=== PATIENT | male | born 1975 ===

== ENCOUNTER 2020-04-22 00:38 | Emergency (ER) | payer MEDICAID ==
[~2020-04-22] VITALS: Ht 185.4 cm; Wt 126.4 kg
--- NOTE | 2020-04-22 01:09 | NUR ---
ERP TO BEDSIDE.
[2020-04-22 01:58] LABS: BASOPHILS # (AUTO) 0.02 x10^3/uL (0-0.1); BASOPHILS % (AUTO) 0 % (0-1); EOSINOPHILS # (AUTO) 0.04 x10^3/uL (0-0.4); EOSINOPHILS % (AUTO) 1 % (1-7); LYMPHOCYTES # (AUTO) 1.27 x10^3/uL (1-3.4); LYMPHOCYTES % (AUTO) 17 % (22-44); MD NO; MEAN CORPUSCULAR HEMOGLOBIN 29.9 pg (27.5-34.5); MEAN CORPUSCULAR HGB CONC 32.5 g/dL (33.2-36.2); MEAN CORPUSCULAR VOLUME 92.2 fL (81-97); MEAN PLATELET VOLUME 7.6 fL (7.4-10.4); MONOCYTES # (AUTO) 0.79 x10^3/uL (0.2-0.8); MONOCYTES % (AUTO) 11 % (2-9); NEUTROPHILS # (AUTO) 5.22 x10^3/uL (1.8-6.8); NEUTROPHILS % (AUTO) 71 % (42-75); PLATELET COUNT 153 x10^3/uL (130-400); RED BLOOD COUNT 3.65 x10^6/uL (4.38-5.82); RED CELL DISTRIBUTION WIDTH 17.7 % (9.4-14.8)
--- NOTE | 2020-04-22 02:07 | NUR ---
US AT BS AT THIS TIME.
[2020-04-22 02:09] LABS: ALBUMIN 3.9 g/dL (3.4-5.0); ANION GAP 4 mmol/L (5-15); CALCIUM 8.6 mg/dL (8.5-10.1); CHLORIDE 112 mmol/L (98-107)
[2020-04-22 02:13] LABS: ALANINE AMINOTRANSFERASE 26 U/L (12-78); ALKALINE PHOSPHATASE 235 U/L (45-117); BILIRUBIN,TOTAL 3.2 mg/dL (0.2-1.0); CREATININE 1.07 mg/dL (0.7-1.3); TOTAL PROTEIN 6.9 g/dL (6.4-8.2)
[2020-04-22] MEDS ORDERED: HYDROcodone/APAP 5/325 TABLET PO ONE (02:30)
[2020-04-22] MEDS ORDERED: LIDOCAINE 1%, 10ML INFIL ONE (02:30)
[2020-04-22] MEDS ORDERED: HYDROcodone/APAP 5/325 TABLET ONE ×2 (02:32→02:40)
--- NOTE | 2020-04-22 02:35 | NUR ---
PT SITTING IN BED, WATCHING TV, NO SIGNS OF DISTRESS. WILL CONTINUE TO MONITOR.
--- NOTE | 2020-04-22 02:52 | NUR ---
PT AMBULATORY TO BATHROOM, STEADY GAIT.
[2020-04-22] MEDS ORDERED: LIDOCAINE-MPF 1%, 5ML ONE (03:00)
--- NOTE | 2020-04-22 03:45 | NUR ---
ERP TO BEDSIDE TO DO PARACENTISIS.
[2020-04-22] MEDS ORDERED: MORPHINE SULFATE 4 MG/ML, 1ML ONE (04:12)
[2020-04-22] MEDS ORDERED: ONDANSETRON 2MG/ML, 2ML ONE (04:12)
[2020-04-22] MEDS ORDERED: ONDANSETRON 2MG/ML, 2ML IVPush ONE (04:30)
[2020-04-22] MEDS ORDERED: MORPHINE SULFATE 4 MG/ML, 1ML IVPush PRN (04:30)
--- NOTE | 2020-04-22 04:50 | NUR ---
ERP TO BEDSIDE, UPDATED PT ON POC. ALL NEEDS MET AT THIS TIME.
--- NOTE | 2020-04-22 04:57 | NUR ---
PARACENTISIS UNSUCCESSFUL DUE TO CATHETER NOT STAYING IN PLACE. ERP UPDATED PT ON POC, DISCUSSED FLUID NEEDING TO BE SENT TO LAB, FLUID SENT. PLAN FOR PARACENTISIS IN IR LATER THIS AM. PT CURRENTLY LAYING IN BED, EYES CLOSED, RESPIRATIONS EVEN AND UNLABORED. WILL CONTINUE TO MONITOR.
--- NOTE | 2020-04-22 05:50 | NUR ---
PT REMAINS ON MONITORS, LAYING IN BED, NO SIGNS OF DISTRESS, RESPIRATIONS EVEN AND UNLABORED, WATCHING TV, CALL LIGHT WITHIN REACH, CELL PHONE IN HAND. PT STATES "I'M NOT IN PAIN, I'M DOING ALL RIGHT."
--- NOTE | 2020-04-22 05:51 | NUR ---
CONSENT OBTAINED BEFORE PARACENTISIS PERFORMED.
--- NOTE | 2020-04-22 06:46 | NUR ---
PT CONVERSING WITH THIS RN, NO SIGNS OF DISTRESS, NO COMPLAINTS. PT AMBULATORY TO BATHROOM, STEADY GAIT.
[2020-04-22] MEDS ORDERED: FURO20TA3 PO (06:51)
[2020-04-22] MEDS ORDERED: HYDR25CA94 PO (06:51)
[2020-04-22] MEDS ORDERED: PROP10TA16 PO (06:51)
[2020-04-22] MEDS ORDERED: OLAN10TA9 PO (06:51)
[2020-04-22] MEDS ORDERED: MIRT15TA94 PO (06:51)
[2020-04-22] MEDS ORDERED: SPIR25TA5 PO (06:51)
[2020-04-22] MEDS ORDERED: RIFA550T4 PO (06:51)
--- NOTE | 2020-04-22 07:00 | NUR ---
RECEIVED REPORT FROM GENIA MANZO RN. [facility]. VSS. MOUTH SWABS PROVIDED.
--- NOTE | 2020-04-22 07:01 | NUR ---
Report given to ELIZABETH Gallardo.
--- NOTE | 2020-04-22 07:47 | NUR ---
NATALIE W/ EBONY IN IR WHO STATES PT WILL BE TAKEN BEFORE 0800 TODAY.
[2020-04-22] MEDS ORDERED: LIDOCAINE 1%, 10ML ONE (07:50)
--- NOTE | 2020-04-22 08:10 | NUR ---
PATIENT TAKEN TO IR IN STABLE CONDITION.
--- NOTE | 2020-04-22 08:40 | NUR ---
PT BACK FROM IR. RESTING ON [employer]. NADN. [place]IST[facility].
--- NOTE | 2020-04-22 09:46 | NUR ---
PT RESTING ON GURNEY. NADN. [place]. PT CHART REVIEWED AND PLACED FOR RECHECK.
[2020-04-22 10:41] VITALS: BP 117/68
--- NOTE | 2020-04-22 10:42 | NUR ---
PT RESTING ON GURNEY. TAVAREZ. VSS. DIET TRAY ORDERED.
--- NOTE | 2020-04-22 11:07 | NUR ---
PT RESTING ON GURNEY. TAVAREZ. PT PROVIDED W/ MEAL TRAY.
== END 2020-04-22 11:35 | disposition home or self-care (01) ==
LOC: ED 03:18
DX: K70.31 Alcoholic cirrhosis of liver with ascites (principal); R06.00 Dyspnea, unspecified; R10.9 Unspecified abdominal pain
CPT/HCPCS: 36415; 49083; 71045; 80053; 82042; 83615; 85025; 87070; 87205; 89051; 96374; 96375; 99285; J2270; J2405; J3490

== ENCOUNTER 2020-05-01 09:37 | Inpatient (IN) | payer MEDICAID ==
[~2020-05-01] VITALS: Ht 185.4 cm; Wt 126.4 kg
[~2020-05-01 09:37] MED LIST: FURO20TA3 PO; HYDR25CA94 PO; MIRT15TA94 PO; OLAN10TA9 PO; PROP10TA16 PO; RIFA550T4 PO; SPIR25TA5 PO
[2020-05-01] MEDS ORDERED: ACETAMINOPHEN 500 MG TABLET PO ONE (10:00)
[2020-05-01] MEDS ORDERED: SODIUM CHLORIDE FLUSH 10ML SYR IVF ONE (10:00)
[2020-05-01] MEDS ORDERED: ONDANSETRON 2MG/ML, 2ML ONE (10:16)
[2020-05-01] MEDS ORDERED: IBUPROFEN 800 MG TABLET ONE (10:16)
[2020-05-01] MEDS ORDERED: MORPHINE SULFATE 4 MG/ML, 1ML ONE (10:17)
[2020-05-01] MEDS ORDERED: LIDOCAINE 1%, 10ML ONE ×2 (10:19→12:35)
--- NOTE | 2020-05-01 10:28 | NUR ---
MAKENNA LEWIS AT FOR PARACENTESIS. Addendum: 05/01/20 at 1044 by JAMEE PARACENTESIS SIGNED BY WILLIAM.
[2020-05-01] MEDS ORDERED: ONDANSETRON 2MG/ML, 2ML IVPush ONE (10:30)
[2020-05-01] MEDS ORDERED: IBUPROFEN 800 MG TABLET PO ONE (10:30)
--- NOTE | 2020-05-01 10:40 | NUR ---
PARACENTESIS PROCEDURE HELD, FOR NOW.
[2020-05-01] MEDS ORDERED: PROP10TA51 PO (10:43)
[2020-05-01] MEDS ORDERED: GABAPENTIN (10:52)
--- NOTE | 2020-05-01 10:53 | NUR ---
PT POOR HISTORIAN RE: HIS PRESCRIPTIONS; UNABLE TO RECALL NAMES, DOSES, WHEN HE LAST TOOK MED.
[2020-05-01] MEDS: MORPHINE SULFATE 4 MG/ML, 1ML IVPush PRN (10:57)
--- NOTE | 2020-05-01 11:01 | NUR ---
ZOFRAN AND MORPHINE GIVEN PER EMAR. IBUPROFEN HELD DUE TO PT'S SUPINE POSITION FOR U/S PROCEDURE. PT VERY TALKATIVE.
[2020-05-01 11:17] LABS: BASOPHILS # (AUTO) 0.03 x10^3/uL (0-0.1); BASOPHILS % (AUTO) 0 % (0-1); EOSINOPHILS # (AUTO) 0.03 x10^3/uL (0-0.4); EOSINOPHILS % (AUTO) 0 % (1-7); LYMPHOCYTES # (AUTO) 1.06 x10^3/uL (1-3.4); LYMPHOCYTES % (AUTO) 10 % (22-44); MD NO; MEAN CORPUSCULAR HEMOGLOBIN 30.3 pg (27.5-34.5); MEAN CORPUSCULAR HGB CONC 32.9 g/dL (33.2-36.2); MEAN CORPUSCULAR VOLUME 92.3 fL (81-97); MEAN PLATELET VOLUME 7.5 fL (7.4-10.4); MONOCYTES # (AUTO) 1.13 x10^3/uL (0.2-0.8); MONOCYTES % (AUTO) 11 % (2-9); NEUTROPHILS # (AUTO) 8.48 x10^3/uL (1.8-6.8); NEUTROPHILS % (AUTO) 79 % (42-75); PLATELET COUNT 161 x10^3/uL (130-400)
[2020-05-01 11:21] LABS: ALANINE AMINOTRANSFERASE 30 U/L (12-78); ALBUMIN 3.4 g/dL (3.4-5.0); ANION GAP 8 mmol/L (5-15); CALCIUM 8.6 mg/dL (8.5-10.1); CHLORIDE 110 mmol/L (98-107); CREATININE 1.09 mg/dL (0.7-1.3)
[2020-05-01 11:25] LABS: ALKALINE PHOSPHATASE 182 U/L (45-117); BILIRUBIN,TOTAL 3.1 mg/dL (0.2-1.0); INTERNATIONAL NORMALIZED RATIO 1.2 (0.93-1.1); PROTHROMBIN TIME 12.7 Seconds (9.6-11.5); TOTAL PROTEIN 6.4 g/dL (6.4-8.2)
--- NOTE | 2020-05-01 11:25 | NUR ---
OFFERED IBUPROFEN TO PT; PT REFUSED, AT THIS TIME.
--- NOTE | 2020-05-01 11:30 | NUR ---
STANDING IN ROOM, EATING A BANANA.
[2020-05-01 11:53] LABS: MICROSCOPIC NOT IND
--- NOTE | 2020-05-01 12:48 | NUR ---
PARACENTESIS STAFF AT BS
[2020-05-01] MEDS ORDERED: CEFTRIAXONE PMX 1GM/50ML 50 ML IV ONE (13:00)
--- NOTE | 2020-05-01 13:10 | NUR ---
PARACENTESIS PROCEDURE COMPLETED: 1L FLUID REMOVED.
[2020-05-01] MEDS ORDERED: CEFTRIAXONE PMX 1GM/50ML 50 ML ONE (13:12)
--- NOTE | 2020-05-01 13:20 | NUR ---
BS FOR EXAM
--- NOTE | 2020-05-01 13:33 | NUR ---
ALLYSSA BROWN, INFUSING VIA PUMP. IV SITE PATENT.
[2020-05-01] MEDS ORDERED: LIDO700A42 TP (13:38)
[2020-05-01] MEDS ORDERED: ALBU8.5H8 INH (13:38)
[2020-05-01] MEDS ORDERED: MAGN400T50 PO (13:38)
[2020-05-01] MEDS ORDERED: MULT1TAB77 PO (13:38)
[2020-05-01] MEDS ORDERED: ONDANSETRON 2MG/ML, 2ML IVPush PRN (14:00)
[2020-05-01] MEDS ORDERED: POLYETHYLENE GLYCOL 17 GM PACKET PO PRN (14:00)
[2020-05-01] MEDS ORDERED: ACETAMINOPHEN 325 MG TABLET PO PRN (14:00)
[2020-05-01] MEDS ORDERED: PROPRANOLOL 10 MG TABLET PO PRN (14:00)
[2020-05-01] MEDS ORDERED: ONDANSETRON ODT 4 MG PO PRN (14:00)
[2020-05-01] MEDS ORDERED: DOCUSATE 100 MG CAPSULE PO PRN (14:00)
--- NOTE | 2020-05-01 14:19 | NUR ---
REPORT TO ELIZABETH FREDERICK FOR ROOM 342
[2020-05-01] MEDS ORDERED: ALBUTEROL SULFATE 2.5 MG/3 ML NPPB PRN (14:30)
[2020-05-01 14:33] VITALS: BP 129/68
[2020-05-01 14:57] LABS: AMPHETAMINE SCREEN, URINE Negative (Negative); BARBITURATE SCREEN, URINE Negative (Negative); BENZODIAZEPINE SCREEN, URINE Negative (Negative); CANNABINOID SCREEN, URINE Positive (Negative); COCAINE SCREEN, URINE Negative (Negative); METHADONE SCREEN, URINE Negative (Negative); OPIATE SCREEN, URINE Positive (Negative)
[2020-05-01 20:00] VITALS: BP 99/53
[2020-05-01] MEDS: LACTULOSE 20 GM/30 ML UDC PO SCH (21:34)
[2020-05-01] MEDS: OLANZAPINE 10 MG TABLET PO SCH ×2 (21:34→23:27)
[2020-05-01] MEDS: OXYcodone IR 5MG TABLET PO PRN (22:11)
[2020-05-01 23:20] VITALS: BP 113/65
[2020-05-02 01:30] VITALS: BP 112/65
[2020-05-02 05:00] LABS: ALBUMIN 3.3 g/dL (3.4-5.0); ANION GAP 3 mmol/L (5-15); CALCIUM 8.1 mg/dL (8.5-10.1); CHLORIDE 109 mmol/L (98-107)
[2020-05-02 05:01] LABS: MEAN CORPUSCULAR HEMOGLOBIN 30.3 pg (27.5-34.5); MEAN CORPUSCULAR VOLUME 91.8 fL (81-97); MEAN PLATELET VOLUME 7.6 fL (7.4-10.4); PLATELET COUNT 123 x10^3/uL (130-400); RED BLOOD COUNT 3.36 x10^6/uL (4.38-5.82)
[2020-05-02 05:03] LABS: ALANINE AMINOTRANSFERASE 30 U/L (12-78); ALKALINE PHOSPHATASE 172 U/L (45-117); BILIRUBIN,TOTAL 2.4 mg/dL (0.2-1.0); CREATININE 1.21 mg/dL (0.7-1.3); TOTAL PROTEIN 6.3 g/dL (6.4-8.2)
[2020-05-02 05:04] LABS: RED CELL DISTRIBUTION WIDTH 17.9 % (9.4-14.8)
[2020-05-02 05:54] LABS: BASOPHILS # (AUTO) 0.02 x10^3/uL (0-0.1); BASOPHILS % (AUTO) 0 % (0-1); EOSINOPHILS # (AUTO) 0.05 x10^3/uL (0-0.4); EOSINOPHILS % (AUTO) 1 % (1-7); LYMPHOCYTES # (AUTO) 1.49 x10^3/uL (1-3.4); LYMPHOCYTES % (AUTO) 19 % (22-44); MD MORPH REVIEW ONLY; MONOCYTES # (AUTO) 0.92 x10^3/uL (0.2-0.8); MONOCYTES % (AUTO) 12 % (2-9); NEUTROPHILS % (AUTO) 68 % (42-75)
[2020-05-02 05:55] LABS: ANISOCYTOSIS 1+; OVALOCYTES 1+
[2020-05-02 05:57] LABS: <PLATELET ESTIMATE> ADEQUATE; <PLT MORPHOLOGY> NORMAL PLT MORPH; ECHINOCYTES 1+; SCHISTOCYTES 1+
[2020-05-02] MEDS: OXYcodone IR 5MG TABLET PO PRN ×2 (06:19→15:22)
[2020-05-02 07:13] VITALS: BP 116/68
[2020-05-02] MEDS: MIRTAZAPINE 15 MG TAB.RAPDIS PO SCH (08:41)
[2020-05-02] MEDS: FUROSEMIDE 40 MG TABLET PO SCH (08:42)
[2020-05-02] MEDS: MULTIVITAMIN 1 TABLET PO SCH (08:42)
[2020-05-02] MEDS: LACTULOSE 20 GM/30 ML UDC PO SCH ×2 (08:42→21:33)
[2020-05-02] MEDS ORDERED: SPIRONOLACTONE 25 MG TABLET PO SCH (09:00)
[2020-05-02 14:00] VITALS: BP 105/66
[2020-05-02] MEDS: CEFTRIAXONE PMX 1GM/50ML 50 ML IV SCH (15:00)
[2020-05-02 19:52] VITALS: BP 127/72
[2020-05-02] MEDS: OLANZAPINE 10 MG TABLET PO SCH (21:33)
[2020-05-03 01:11] VITALS: BP 127/71
[2020-05-03] MEDS: OXYcodone IR 5MG TABLET PO PRN ×3 (01:16→21:34)
[2020-05-03 05:21] LABS: MEAN CORPUSCULAR HEMOGLOBIN 30.7 pg (27.5-34.5); MEAN CORPUSCULAR HGB CONC 33.6 g/dL (33.2-36.2); MEAN CORPUSCULAR VOLUME 91.4 fL (81-97); MEAN PLATELET VOLUME 7.3 fL (7.4-10.4); PLATELET COUNT 99 x10^3/uL (130-400); RED BLOOD COUNT 3.06 x10^6/uL (4.38-5.82); RED CELL DISTRIBUTION WIDTH 17.7 % (9.4-14.8)
[2020-05-03 05:28] LABS: ALANINE AMINOTRANSFERASE 26 U/L (12-78); ALBUMIN 2.9 g/dL (3.4-5.0); ANION GAP 5 mmol/L (5-15); CALCIUM 7.9 mg/dL (8.5-10.1); CHLORIDE 110 mmol/L (98-107)
[2020-05-03 05:31] LABS: ALKALINE PHOSPHATASE 153 U/L (45-117); BILIRUBIN,TOTAL 1.9 mg/dL (0.2-1.0); CREATININE 0.99 mg/dL (0.7-1.3); TOTAL PROTEIN 5.5 g/dL (6.4-8.2)
[2020-05-03 07:05] LABS: MD SCAN
[2020-05-03 07:06] LABS: BASOPHILS # (AUTO) 0.03 x10^3/uL (0-0.1); BASOPHILS % (AUTO) 1 % (0-1); EOSINOPHILS # (AUTO) 0.04 x10^3/uL (0-0.4); EOSINOPHILS % (AUTO) 1 % (1-7); LYMPHOCYTES # (AUTO) 1.18 x10^3/uL (1-3.4); LYMPHOCYTES % (AUTO) 24 % (22-44); MONOCYTES # (AUTO) 0.81 x10^3/uL (0.2-0.8); MONOCYTES % (AUTO) 17 % (2-9); NEUTROPHILS # (AUTO) 2.79 x10^3/uL (1.8-6.8); NEUTROPHILS % (AUTO) 58 % (42-75)
[2020-05-03 07:33] VITALS: BP 102/57
[2020-05-03] MEDS: MULTIVITAMIN 1 TABLET PO SCH (10:34)
[2020-05-03] MEDS: FUROSEMIDE 40 MG TABLET PO SCH (10:34)
[2020-05-03] MEDS: LACTULOSE 20 GM/30 ML UDC PO SCH ×2 (10:34→21:29)
[2020-05-03] MEDS: SPIRONOLACTONE 100 MG TABLET PO SCH (10:34)
[2020-05-03] MEDS: MIRTAZAPINE 15 MG TAB.RAPDIS PO SCH (10:35)
[2020-05-03 14:12] VITALS: BP 117/67
[2020-05-03] MEDS: CEFTRIAXONE PMX 1GM/50ML 50 ML IV SCH (15:32)
[2020-05-03] MEDS: OLANZAPINE 10 MG TABLET PO SCH (21:29)
[2020-05-03 21:47] VITALS: BP 143/79
[2020-05-04 00:42] VITALS: BP 104/56
[2020-05-04] MEDS: OXYcodone IR 5MG TABLET PO PRN ×2 (05:35→16:52)
[2020-05-04 06:03] LABS: MEAN CORPUSCULAR HEMOGLOBIN 30.5 pg (27.5-34.5); MEAN CORPUSCULAR HGB CONC 33.2 g/dL (33.2-36.2); MEAN CORPUSCULAR VOLUME 91.7 fL (81-97); RED CELL DISTRIBUTION WIDTH 17.8 % (9.4-14.8)
[2020-05-04 06:05] LABS: ALBUMIN 2.9 g/dL (3.4-5.0); ANION GAP 5 mmol/L (5-15); CALCIUM 8.1 mg/dL (8.5-10.1); CHLORIDE 110 mmol/L (98-107)
[2020-05-04 06:11] LABS: ALANINE AMINOTRANSFERASE 27 U/L (12-78); ALKALINE PHOSPHATASE 154 U/L (45-117); CREATININE 0.97 mg/dL (0.7-1.3); TOTAL PROTEIN 5.6 g/dL (6.4-8.2)
[2020-05-04 06:46] LABS: BASOPHILS # (AUTO) 0.02 x10^3/uL (0-0.1); BASOPHILS % (AUTO) 1 % (0-1); EOSINOPHILS # (AUTO) 0.03 x10^3/uL (0-0.4); EOSINOPHILS % (AUTO) 1 % (1-7); LYMPHOCYTES # (AUTO) 1.04 x10^3/uL (1-3.4); LYMPHOCYTES % (AUTO) 22 % (22-44); MD MORPH REVIEW ONLY; MEAN PLATELET VOLUME 7.2 fL (7.4-10.4); MONOCYTES # (AUTO) 0.82 x10^3/uL (0.2-0.8); MONOCYTES % (AUTO) 17 % (2-9); NEUTROPHILS # (AUTO) 2.95 x10^3/uL (1.8-6.8); NEUTROPHILS % (AUTO) 61 % (42-75); PLATELET COUNT 109 x10^3/uL (130-400)
[2020-05-04 06:47] LABS: ANISOCYTOSIS 1+
[2020-05-04 06:48] LABS: OVALOCYTES 1+; SCHISTOCYTES 1+
[2020-05-04 06:52] LABS: <PLATELET ESTIMATE> DECREASED; <PLT MORPHOLOGY> NORMAL PLT MORPH
[2020-05-04 07:18] VITALS: BP 117/65
[2020-05-04] MEDS: MULTIVITAMIN 1 TABLET PO SCH (08:48)
[2020-05-04] MEDS: MIRTAZAPINE 15 MG TAB.RAPDIS PO SCH (08:48)
[2020-05-04] MEDS: FUROSEMIDE 40 MG TABLET PO SCH ×2 (08:48→16:50)
[2020-05-04] MEDS: LACTULOSE 20 GM/30 ML UDC PO SCH ×2 (08:48→21:45)
[2020-05-04] MEDS: SPIRONOLACTONE 100 MG TABLET PO SCH (08:48)
[2020-05-04] MEDS: MORPHINE SULFATE 4 MG/ML, 1ML IVPush PRN (08:55)
[2020-05-04 14:46] VITALS: BP 107/64
[2020-05-04] MEDS: CEFTRIAXONE PMX 1GM/50ML 50 ML IV SCH (15:34)
[2020-05-04 21:30] VITALS: BP 120/70
[2020-05-04] MEDS: OLANZAPINE 10 MG TABLET PO SCH (21:46)
[2020-05-04] MEDS ORDERED: IBUPROFEN 600 MG TABLET PO ONE (22:30)
[2020-05-05] MEDS: OXYcodone IR 5MG TABLET PO PRN ×3 (01:02→19:35)
[2020-05-05 01:04] VITALS: BP 125/73
[2020-05-05 05:49] LABS: BASOPHILS # (AUTO) 0.03 x10^3/uL (0-0.1); BASOPHILS % (AUTO) 1 % (0-1); EOSINOPHILS # (AUTO) 0.05 x10^3/uL (0-0.4); EOSINOPHILS % (AUTO) 1 % (1-7); LYMPHOCYTES # (AUTO) 1.14 x10^3/uL (1-3.4); LYMPHOCYTES % (AUTO) 26 % (22-44); MD NO; MEAN CORPUSCULAR HEMOGLOBIN 29.8 pg (27.5-34.5); MEAN CORPUSCULAR HGB CONC 33.1 g/dL (33.2-36.2); MEAN CORPUSCULAR VOLUME 90.3 fL (81-97); MEAN PLATELET VOLUME 7.2 fL (7.4-10.4); MONOCYTES % (AUTO) 18 % (2-9); NEUTROPHILS # (AUTO) 2.36 x10^3/uL (1.8-6.8); NEUTROPHILS % (AUTO) 54 % (42-75); PLATELET COUNT 106 x10^3/uL (130-400); RED BLOOD COUNT 3.06 x10^6/uL (4.38-5.82); RED CELL DISTRIBUTION WIDTH 17.5 % (9.4-14.8)
[2020-05-05 06:13] LABS: CALCIUM 7.8 mg/dL (8.5-10.1); CHLORIDE 108 mmol/L (98-107)
[2020-05-05 06:20] LABS: ALANINE AMINOTRANSFERASE 24 U/L (12-78); ALBUMIN 2.8 g/dL (3.4-5.0); ALKALINE PHOSPHATASE 168 U/L (45-117); ANION GAP 5 mmol/L (5-15); BILIRUBIN,TOTAL 1.9 mg/dL (0.2-1.0); CREATININE 1.02 mg/dL (0.7-1.3); TOTAL PROTEIN 5.3 g/dL (6.4-8.2)
[2020-05-05 07:15] VITALS: BP 121/74
[2020-05-05] MEDS: SPIRONOLACTONE 100 MG TABLET PO SCH (08:48)
[2020-05-05] MEDS: MIRTAZAPINE 15 MG TAB.RAPDIS PO SCH (08:48)
[2020-05-05] MEDS: LACTULOSE 20 GM/30 ML UDC PO SCH ×2 (08:48→20:37)
[2020-05-05] MEDS: MULTIVITAMIN 1 TABLET PO SCH (08:48)
[2020-05-05] MEDS: FUROSEMIDE 40 MG TABLET PO SCH (08:48)
[2020-05-05] MEDS ORDERED: FUROSEMIDE 40 MG/4 ML IV ONE ×2 (09:13→14:00)
[2020-05-05] MEDS: CEFTRIAXONE PMX 1GM/50ML 50 ML IV SCH (13:48)
[2020-05-05 15:02] VITALS: BP 131/80
[2020-05-05 19:30] VITALS: BP 104/56
[2020-05-05] MEDS: OLANZAPINE 10 MG TABLET PO SCH (20:37)
[2020-05-06 01:19] VITALS: BP 111/66
[2020-05-06] MEDS: OXYcodone IR 5MG TABLET PO PRN ×2 (04:33→19:50)
[2020-05-06 05:18] LABS: BASOPHILS # (AUTO) 0.01 x10^3/uL (0-0.1); BASOPHILS % (AUTO) 0 % (0-1); EOSINOPHILS # (AUTO) 0.03 x10^3/uL (0-0.4); EOSINOPHILS % (AUTO) 1 % (1-7); LYMPHOCYTES # (AUTO) 1.06 x10^3/uL (1-3.4); LYMPHOCYTES % (AUTO) 25 % (22-44); MD NO; MEAN CORPUSCULAR HEMOGLOBIN 29.9 pg (27.5-34.5); MEAN CORPUSCULAR VOLUME 90.6 fL (81-97); MONOCYTES # (AUTO) 0.79 x10^3/uL (0.2-0.8); MONOCYTES % (AUTO) 18 % (2-9); NEUTROPHILS # (AUTO) 2.38 x10^3/uL (1.8-6.8); NEUTROPHILS % (AUTO) 56 % (42-75); PLATELET COUNT 107 x10^3/uL (130-400); RED BLOOD COUNT 3.15 x10^6/uL (4.38-5.82); RED CELL DISTRIBUTION WIDTH 17.4 % (9.4-14.8)
[2020-05-06 05:27] LABS: ALBUMIN 2.7 g/dL (3.4-5.0); ANION GAP 7 mmol/L (5-15); CALCIUM 8.5 mg/dL (8.5-10.1); CHLORIDE 107 mmol/L (98-107)
[2020-05-06 05:31] LABS: ALANINE AMINOTRANSFERASE 27 U/L (12-78); ALKALINE PHOSPHATASE 127 U/L (45-117); BILIRUBIN,TOTAL 2.1 mg/dL (0.2-1.0); CREATININE 1.02 mg/dL (0.7-1.3); TOTAL PROTEIN 5.3 g/dL (6.4-8.2)
[2020-05-06 07:03] VITALS: BP 98/45
[2020-05-06] MEDS: LACTULOSE 20 GM/30 ML UDC PO SCH ×2 (08:36→20:44)
[2020-05-06] MEDS: MIRTAZAPINE 15 MG TAB.RAPDIS PO SCH (08:36)
[2020-05-06] MEDS: MULTIVITAMIN 1 TABLET PO SCH (08:36)
[2020-05-06] MEDS: SPIRONOLACTONE 100 MG TABLET PO SCH (08:36)
[2020-05-06] MEDS: CEFTRIAXONE PMX 1GM/50ML 50 ML IV SCH (13:26)
[2020-05-06 13:47] VITALS: BP 116/70
[2020-05-06 19:24] VITALS: BP 112/56
[2020-05-06] MEDS: OLANZAPINE 10 MG TABLET PO SCH (20:44)
[2020-05-07 01:59] VITALS: BP 141/82
[2020-05-07] MEDS: OXYcodone IR 5MG TABLET PO PRN ×2 (04:14→12:27)
[2020-05-07 05:20] LABS: ALANINE AMINOTRANSFERASE 25 U/L (12-78); ALBUMIN 2.8 g/dL (3.4-5.0); ANION GAP 6 mmol/L (5-15); CALCIUM 8.2 mg/dL (8.5-10.1); CHLORIDE 109 mmol/L (98-107)
[2020-05-07 05:23] LABS: ALKALINE PHOSPHATASE 131 U/L (45-117); BILIRUBIN,TOTAL 1.9 mg/dL (0.2-1.0); CREATININE 0.93 mg/dL (0.7-1.3); MEAN CORPUSCULAR HGB CONC 32.7 g/dL (33.2-36.2); MEAN CORPUSCULAR VOLUME 91.8 fL (81-97); MEAN PLATELET VOLUME 7.1 fL (7.4-10.4); PLATELET COUNT 113 x10^3/uL (130-400); RED BLOOD COUNT 3.26 x10^6/uL (4.38-5.82); RED CELL DISTRIBUTION WIDTH 17.6 % (9.4-14.8); TOTAL PROTEIN 5.5 g/dL (6.4-8.2)
[2020-05-07 06:10] LABS: MD YES
[2020-05-07 06:18] LABS: ANISOCYTOSIS 1+; BAND#(MANUAL) 0.05 x10^3/uL; BANDS%(MANUAL) 1 % (0-7); BASOS% (MANUAL) 2 % (0-1); EOS#(MANUAL) 0.05 x10^3/uL (0.0-0.4); EOS% (MANUAL) 1 % (1-7); LYMPH#(MANUAL) 1.17 x10^3/uL (1-3.4); LYMPHS% (MANUAL) 23 % (22-44); MONOS#(MANUAL) 0.87 x10^3/uL (0.3-2.7); MONOS% (MANUAL) 17 % (2-9); OVALOCYTES 1+; SEG#(MANUAL) 2.86 x10^3/uL (1.8-6.8); SEGS% (MANUAL) 56 % (42-75)
[2020-05-07 06:20] LABS: <PLATELET ESTIMATE> DECREASED; <PLT MORPHOLOGY> NORMAL PLT MORPH
[2020-05-07] MEDS: SPIRONOLACTONE 100 MG TABLET PO SCH (09:09)
[2020-05-07] MEDS: MIRTAZAPINE 15 MG TAB.RAPDIS PO SCH (09:09)
[2020-05-07] MEDS: MULTIVITAMIN 1 TABLET PO SCH (09:09)
[2020-05-07] MEDS: LACTULOSE 20 GM/30 ML UDC PO SCH (09:09)
[2020-05-07 09:34] VITALS: BP 117/69
[2020-05-07] MEDS ORDERED: LACT20SO13 PO (16:47)
[2020-05-07] MEDS ORDERED: SPIR100T PO (16:47)
== END 2020-05-07 17:41 | disposition home or self-care (01) | DRG 871 ==
LOC: ED 10:22 → EDIP 13:15 → 3N 14:25
PROVIDERS: ADMIT Internal Medicine; ATTEND Internal Medicine
PROC: 0W9G3ZZ Drainage of Peritoneal Cavity, Percutaneous Approach (ICD-10-PCS; principal; 2020-05-01)
DX: A41.9 Sepsis, unspecified organism (principal); G93.41 Metabolic encephalopathy; K85.20 Alcohol induced acute pancreatitis without necrosis or infection; I85.00 Esophageal varices without bleeding; F31.9 Bipolar disorder, unspecified; K21.9 Gastro-esophageal reflux disease without esophagitis; K70.31 Alcoholic cirrhosis of liver with ascites; K72.90 Hepatic failure, unspecified without coma; D64.9 Anemia, unspecified; M54.30 Sciatica, unspecified side; N50.89 Other specified disorders of the male genital organs; E66.01 Morbid (severe) obesity due to excess calories; F43.10 Post-traumatic stress disorder, unspecified; Z79.899 Other long term (current) drug therapy; Z88.0 Allergy status to penicillin; Z56.0 Unemployment, unspecified; Z91.14 Patient's other noncompliance with medication regimen; Z68.36 Body mass index [BMI] 36.0-36.9, adult
CPT/HCPCS: 36415; 76870; 82042; 82945; 89051; 96365; 96375; 99285; J3490; 49083; 71045; 80053; 80307; 81003; 82140; 83605; 83615; 83690; 83880; 85025; 85610; 87040; 87070; 87205; G0378; J0696; J1940; J2405; J2270

== ENCOUNTER 2020-05-16 19:34 | Emergency (ER) | payer MEDICAID ==
[~2020-05-16] VITALS: Ht 185.4 cm; Wt 121.9 kg
[~2020-05-16 19:34] MED LIST changes: +ALBU8.5H8 INH; +GABAPENTIN; +LACT20SO13 PO; +LIDO700A42 TP; +MAGN400T50 PO; +MULT1TAB77 PO; +PROP10TA51 PO; +SPIR100T PO
[2020-05-16 20:54] LABS: BASOPHILS # (AUTO) 0.03 x10^3/uL (0-0.1); BASOPHILS % (AUTO) 1 % (0-1); EOSINOPHILS # (AUTO) 0.07 x10^3/uL (0-0.4); EOSINOPHILS % (AUTO) 1 % (1-7); LYMPHOCYTES % (AUTO) 27 % (22-44); MD NO; MEAN CORPUSCULAR HEMOGLOBIN 30.1 pg (27.5-34.5); MEAN CORPUSCULAR HGB CONC 33.2 g/dL (33.2-36.2); MEAN CORPUSCULAR VOLUME 90.6 fL (81-97); MEAN PLATELET VOLUME 8.3 fL (7.4-10.4); MONOCYTES # (AUTO) 0.94 x10^3/uL (0.2-0.8); MONOCYTES % (AUTO) 18 % (2-9); NEUTROPHILS # (AUTO) 2.77 x10^3/uL (1.8-6.8); NEUTROPHILS % (AUTO) 53 % (42-75); PLATELET COUNT 110 x10^3/uL (130-400); RED BLOOD COUNT 3.29 x10^6/uL (4.38-5.82); RED CELL DISTRIBUTION WIDTH 17.6 % (9.4-14.8)
[2020-05-16 21:00] LABS: ALANINE AMINOTRANSFERASE 23 U/L (12-78); ALBUMIN 2.8 g/dL (3.4-5.0); ANION GAP 7 mmol/L (5-15); CHLORIDE 113 mmol/L (98-107); CREATININE 0.99 mg/dL (0.7-1.3)
[2020-05-16 21:01] LABS: SALICYLATE LEVEL < 1.7 mg/dL (2.8-20.0)
[2020-05-16] MEDS ORDERED: NEOSPORIN OINT. PKT 1 PACKET ONE (21:01)
[2020-05-16 21:11] LABS: ALKALINE PHOSPHATASE 167 U/L (45-117); BILIRUBIN,TOTAL 1.8 mg/dL (0.2-1.0); TOTAL PROTEIN 5.4 g/dL (6.4-8.2)
[2020-05-16 21:28] LABS: AMPHETAMINE SCREEN, URINE Negative (Negative); BARBITURATE SCREEN, URINE Negative (Negative); BENZODIAZEPINE SCREEN, URINE Negative (Negative); CANNABINOID SCREEN, URINE Positive (Negative); COCAINE SCREEN, URINE Negative (Negative); METHADONE SCREEN, URINE Negative (Negative); OPIATE SCREEN, URINE Negative (Negative)
[2020-05-16 23:29] VITALS: BP 110/62
== END 2020-05-16 23:33 | disposition home or self-care (01) ==
LOC: ED 21:20
DX: F31.89 Other bipolar disorder (principal); G89.29 Other chronic pain; F17.210 Nicotine dependence, cigarettes, uncomplicated
CPT/HCPCS: 36415; 80053; 80307; 84443; 85025; 93005; 99284